=== PATIENT | female | born 1955 | race African-American/Black ===

== ENCOUNTER 2021-03-01 11:20 | Emergency (ER) | payer OTHER ==
[2021-03-01 11:36] VITALS: BP 118/75; PULSE 89; TEMP 97.5; BMI 29.0
[2021-03-01] MEDS ORDERED: morphine CARPU-JECT 2 MG/1 ML DISP.SYRIN IVPUSH ONE (12:49)
[2021-03-01] MEDS ORDERED: MORPHINE SULFATE 2 MG/ML VIAL ONE (12:53)
[2021-03-01 13:24] LABS: BASO % 0.8 % (0-2.0); EOS % 1.8 % (0-4.5); HEMATOCRIT 43.2 % (32.4-45.2); HEMOGLOBIN 14.6 GM/dL (10.7-15.3); LYMPH % 20.5 % (8-40); MCH 30.1 pg (25.7-33.7); MCHC 33.8 g/dl (32.0-36.0); MEAN CELL VOLUME 89.2 fl (80-96); MEAN PLT VOLUME 9.2 fl (7.5-11.1); MONO % 10.8 % (3.8-10.2); NEUT % 66.1 % (42.8-82.8); PLATELET COUNT 304 10^3/uL (134-434); RBC 4.84 M/mm3 (3.60-5.2); RDW 13.9 % (11.6-15.6); WHITE BLOOD COUNT 8.4 K/mm3 (4.0-10.0)
[2021-03-01 14:02] LABS: CALCIUM 9.2 mg/dL (8.5-10.1)
[2021-03-01 14:03] LABS: ALBUMIN 3.3 g/dl (3.4-5.0)
[2021-03-01 14:06] LABS: CREATININE 0.8 mg/dL (0.55-1.3)
[2021-03-01 14:07] LABS: BILIRUBIN,TOTAL 0.3 mg/dL (0.2-1)
[2021-03-01 14:08] LABS: TOT PROT 7.9 g/dl (6.4-8.2)
[2021-03-01 14:11] LABS: BLOOD UREA NITROGEN 8.2 mg/dL (7-18)
== END 2021-03-01 16:04 | disposition home or self-care (01) ==
LOC: JER 11:20
PROC: 3E033NZ Introduction of Analgesics, Hypnotics, Sedatives into Peripheral Vein, Percutaneous Approach (ICD-10-PCS; principal; 2021-03-01)
DX: R10.84 Generalized abdominal pain (principal)
CPT/HCPCS: 36415; 80053; 83690; 85025; 99284-25

== ENCOUNTER 2021-03-26 14:06 | Emergency (ER) | payer OTHER ==
[2021-03-26 14:13] VITALS: BP 106/70; PULSE 83; TEMP 98.4; BMI 28.9
[2021-03-26] MEDS ORDERED: oxyCODONE HCL 5 MG TABLET PO ONE (16:06)
[2021-03-26] MEDS ORDERED: oxyCODONE HCL 5 MG TABLET ONE (16:28)
== END 2021-03-26 16:40 | disposition home or self-care (01) ==
LOC: JERFT 14:06
DX: R10.13 Epigastric pain (principal)
CPT/HCPCS: 99283-25